=== PATIENT | male | born 1955 | race Caucasian/White ===

== ENCOUNTER 2017-07-27 09:36 | Emergency (ER) | payer OTHER ==
[2017-07-27] MEDS: KETOROLAC 30 MG INJ IV (10:34)
[2017-07-27] MEDS: SOD CHLORIDE 0.9% 1,000 ML IV (10:35)
[2017-07-27 10:38] LABS: ADD MAN DIFF? NO
[2017-07-27 10:45] LABS: BASOPHILS % 0.2 % (0.0-2.0); EOSINOPHILS % 0.3 % (0.0-7.0); HEMATOCRIT 45.5 % (42.0-52.0); HEMOGLOBIN 16.1 g/dl (14.0-18.0); LYMPHOCYTES # 0.7 10^3/ul (0.8-2.9); LYMPHOCYTES % 5.3 % (15.0-51.0); MEAN CORPUSCULAR HGB CONC 35.4 g/dl (32.0-37.0); MEAN CORPUSCULAR VOLUME 87.5 fl (82.0-101.0); MEAN PLATELET VOLUME 10.4 fl (7.4-10.4); MONOCYTE # 0.9 10^3/ul (0.3-0.9); MONOCYTES % 6.9 % (0.0-11.0); NEUTROPHIL # 11.8 10^3/ul (1.6-7.5); NEUTROPHILS % 86.6 % (39.0-77.0); PLATELET COUNT 200 10^3/UL (140-415)
[2017-07-27 10:45] LABS: WHITE BLOOD COUNT 13.6 10^3/ul (4.8-10.8)
[2017-07-27] MEDS: CLINDAMYCIN 600 MG/D5W (PMX) 50 ML IVPB (11:00)
[2017-07-27 11:03] LABS: ALANINE AMINOTRANSFERASE 47 IU/L (13-69); ALBUMIN 4.7 g/dl (3.3-4.9); ALBUMIN/GLOBULIN RATIO 1.06; ALKALINE PHOSPHATASE 119 IU/L (42-121); ANION GAP 16 (8-16); ASPARTATE AMINO TRANSFERASE 45 IU/L (15-46); BLOOD UREA NITROGEN 14 mg/dl (7-20); CARBON DIOXIDE 28 mmol/L (21-31); CHLORIDE 102 mmol/L (97-110); CREATININE 0.88 mg/dl (0.61-1.24); GLUCOSE 98 mg/dl (70-220); LIPASE 71 U/L (23-300); SODIUM 142 mmol/L (135-144); TOTAL PROTEIN 9.1 g/dl (6.1-8.1)
[2017-07-27] MEDS: SOD CHLORIDE 0.9% 100 ML (13:00)
[2017-07-27] MEDS: IOHEXOL 300MG/ML 150 ML BTL (13:00)
== END 2017-07-27 13:48 | disposition home or self-care (01) ==
LOC: FTE 09:36
DX: J36 Peritonsillar abscess (principal)
CPT/HCPCS: 36415; 70486; 80053; 83690; 85025; 96374; 96375; 99285-25